=== PATIENT | female | born 1995 | race Caucasian/White ===

== ENCOUNTER 2017-11-25 10:43 | Emergency (ER) | payer BC ==
--- NOTE | 2017-11-25 13:29 | UC ---
FLU HPI - HPI Summary HPI Summary: chills cough body aches headache and nasal congestion - History of Current Complaint Chief Complaint: UCRespiratory Stated Complaint: FLU SYMPTOMS Time Seen by Provider: 11/25/17 12:16 Hx Obtained From: Patient Hx Last Menstrual Period: 11/14/17 ?: No Onset/Duration: Sudden Onset, Lasting Days - 2, Still Present Severity Currently: Moderate Severity Initially: Moderate Associated Signs & Symptoms: Positive: Myalgia, Sore Throat, Nasal Congestion, Headache Related Hx: Possible Flu/Infectious Exposure - Allergy/Home Medications Allergies/Adverse Reactions: Allergies Allergy/AdvReac Type Severity Reaction Status Date / Time Cefprozil [From Cefzil] Allergy Hives Verified 11/25/17 12:44 Home Medications: Home Medications Dlqljtd-Blifliukdxowf-Ayoppzdn [Excedrin Migraine 250-250-65 mg] 2 tab PO Q12H PRN 11/25/17 [History Confirmed 11/25/17] Drospirenone-Ethinyl Estradiol [Loryna 3-0.02 mg] 1 tab PO DAILY 11/25/17 [ History Confirmed 11/25/17] Isotretinoin [Absorica] 40 mg PO DAILY 11/25/17 [History Confirmed 11/25/17] PMH/Surg Hx/FS Hx/Imm Hx Previously Healthy: Yes Respiratory History: Bronchitis - Surgical History Surgical History: None - Family History Known Family History: Positive: None, Other - Crohns Disease - Social History Occupation: Student Lives: With Family Alcohol Use: Occasionally Substance Use Type: None Smoking Status (MU): Never Smoked Tobacco - Immunization History Most Recent Influenza Vaccination: August 2017 Review of Systems Constitutional: Chills, Fatigue Skin: Negative Eyes: Negative ENT: Nasal Discharge Respiratory: Cough Cardiovascular: Negative Gastrointestinal: Negative Genitourinary: Negative Motor: Negative Neurovascular: Negative Musculoskeletal: Arthralgia, Myalgia Neurological: Headache Psychological: Negative Is Patient Immunocompromised?: No All Other Systems Reviewed And Are Negative: Yes Physical Exam Triage Information Reviewed: Yes Appearance: Well-Appearing, No Pain Distress, Well-Nourished Vital Signs: Initial Vital Signs Temp 98.6 F 11/25/17 12:42 Pulse 106 11/25/17 12:42 Resp 16 11/25/17 12:42 BP 109/70 11/25/17 12:42 Pulse Ox 100 11/25/17 12:42 Vital Signs Reviewed: Yes Eye Exam: Normal Eyes: Positive: Conjunctiva Clear ENT Exam: Normal ENT: Positive: Normal ENT inspection, Hearing grossly normal, Pharynx normal, Nasal congestion, TMs normal, Uvula midline. Negative: Nasal drainage, Tonsillar swelling, Tonsillar exudate, Trismus, Muffled voice, Hoarse voice, Sinus tenderness Dental Exam: Normal Neck exam: Normal Neck: Positive: Supple, Nontender, No Lymphadenopathy Respiratory Exam: Normal Respiratory: Positive: Chest non-tender, No respiratory distress, No accessory muscle use, Wheezing Cardiovascular Exam: Normal Cardiovascular: Positive: RRR, No Murmur, Pulses Normal, Brisk Capillary Refill Musculoskeletal Exam: Normal Musculoskeletal: Positive: Strength Intact, ROM Intact, No Edema Neurological Exam: Normal Neurological: Positive: Alert, Muscle Tone Normal Psychological Exam: Normal Skin Exam: Normal Diagnostics - Laboratory Diagnostic Studies Completed/Ordered: Influenza A (+) Flu Course/Dx - Course Course Of Treatment: Tamiflu, ibuprofen, tylenol, albuterol increase fluids follow with pcp return as needed - Differential Dx/Diagnosis Provider Diagnoses: Influenza A Discharge - Discharge Plan Condition: Stable Disposition: HOME Prescriptions: Albuterol HFA INHALER* [Ventolin HFA Inhaler*] 2 puff INH Q4H PRN #1 mdi PRN Reason: cough Oseltamivir CAP* [Tamiflu CAP*] 75 mg PO BID #10 cap Patient Education Materials: How to Use a Metered-Dose Inhaler (ED), Influenza (ED) Referrals: Non Staff,Doctor [Primary Care Provider] - Additional Instructions: Follow with primary care doctor or return to urgent care as needed
== END 2017-11-25 13:47 | disposition home or self-care (01) ==
LOC: UCCORT 10:43
DX: J10.1 Influenza due to other identified influenza virus with other respiratory manifestations (principal); Z88.1 Allergy status to other antibiotic agents
CPT/HCPCS: 87502; 99202; G0463